=== PATIENT | female | born 2005 | race African-American/Black ===

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

== ENCOUNTER 2025-05-23 20:16 | Emergency (ER) | payer SELFPAY ==
[~2025-05-23] VITALS: Ht 177.8 cm; Wt 77.6 kg
[~2025-05-23 20:16] MED LIST: ACID CONTROL C1 EACH PO; CEFDINIR300 MG PO
[2025-05-23 22:09] VITALS: PULSE 77; RESP 16; TEMP 98.3
[2025-05-23 22:16] VITALS: BP 112/78; PULSE 77; RESP 16; TEMP 98.3; O2SAT 100
== END 2025-05-23 22:19 | disposition home or self-care (01) ==
LOC: FSED 21:11
DX: R30.0 Dysuria (principal); R35.0 Frequency of micturition
CPT/HCPCS: 81003; 81025; 99283